=== PATIENT | male | born 1945 | race Hispanic/Latino ===

== ENCOUNTER 2022-04-22 04:31 | Emergency (ER) | payer MEDICARE ==
[2022-04-22 07:02] VITALS: BP 95/55
== END 2022-04-22 09:02 | disposition home or self-care (01) ==
LOC: EDH 04:31
DX: S51.812A Laceration without foreign body of left forearm, initial encounter (principal); S51.811A Laceration without foreign body of right forearm, initial encounter; S00.01XA Abrasion of scalp, initial encounter; S00.212A Abrasion of left eyelid and periocular area, initial encounter; F03.90 Unspecified dementia, unspecified severity, without behavioral disturbance, psychotic disturbance, mood disturbance, and anxiety; E11.9 Type 2 diabetes mellitus without complications; E78.00 Pure hypercholesterolemia, unspecified; I10 Essential (primary) hypertension; Z86.73 Personal history of transient ischemic attack (TIA), and cerebral infarction without residual deficits; W06.XXXA Fall from bed, initial encounter; Y93.89 Activity, other specified; Y92.89 Other specified places as the place of occurrence of the external cause; Y99.8 Other external cause status
CPT/HCPCS: 70450

== ENCOUNTER 2022-11-02 12:22 | Emergency (ER) | payer MEDICARE ==
[~2022-11-02] VITALS: Ht 167.6 cm; Wt 60.8 kg
[2022-11-02 13:11] LABS: BASOPHILS % (AUTO) 0.4 % (0.0-5.0); EOSINOPHILS % (AUTO) 5.6 % (0.0-8.0); HEMATOCRIT 32.1 % (42-54); MEAN CORPUSCULAR HEMOGLOBIN 31.4 pg (27.0-33.0); MEAN CORPUSCULAR HGB CONC 36.1 g/dL (32.0-36.0); MEAN CORPUSCULAR VOLUME 86.8 fL (79-99); MONOCYTES % (AUTO) 8.6 % (3.0-13.0); NEUTROPHILS % (AUTO) 71.9 % (40.0-77.0); PLATELET COUNT (AUTO) 88 K/uL (130-400); RED CELL DISTRIBUTION WIDTH 12.6 % (11.0-15.5); WHITE BLOOD COUNT (AUTO) 8.3 K/uL (4.8-10.8)
[2022-11-02 13:16] LABS: CREATININE 2.5 mg/dL (0.5-1.5); POTASSIUM 3.6 mmol/L (3.5-5.1)
[2022-11-02 13:27] LABS: ALBUMIN 3.7 g/dL (3.5-5.0); TOTAL PROTEIN, SERUM 7.1 g/dL (6.0-8.3)
[2022-11-02 15:12] VITALS: BP 123/76
[2022-11-02 18:03] LABS: APPEARANCE,URINE CLEAR (CLEAR); BILIRUBIN,URINE NEGATIVE (NEGATIVE); COLOR,URINE LIGHT-YELLOW (YELLOW); GLUCOSE, URINE (UA) NEGATIVE (NEGATIVE); KETONES,URINE NEGATIVE (NEGATIVE); LEUKOCYTE ESTERASE ,URINE NEGATIVE Leu/uL (NEGATIVE); NITRATE,URINE NEGATIVE (NEGATIVE); PH,URINE 5.5 (5.0-8.0); PROTEIN,URINE 20 mg/dL (NEGATIVE); UROBILINOGEN,URINE 0.2 mg/dL (0.2-1.0)
[2022-11-02 18:18] LABS: BACTERIA,URINE RARE /HPF (None Seen); MUCUS,URINE RARE LPF (None Seen); SQUAMOUS EPITHELIAL CELL,UR FEW /HPF (0-2); WBC,URINE 0-1 /HPF (0-1)
[2022-11-05] MEDS ORDERED: TRAZ-185 PO (12:17)
[2022-11-05] MEDS ORDERED: BUSP10TA3 PO (12:17)
[2022-11-05] MEDS ORDERED: HYDR-3422 PO (12:17)
[2022-11-05] MEDS ORDERED: CHOL4000 PO (12:17)
[2022-11-05] MEDS ORDERED: POTA10CA45 PO (12:17)
[2022-11-05] MEDS ORDERED: MEMA10TA55 PO (12:17)
[2022-11-05] MEDS ORDERED: DONE5TAB33 PO (12:17)
[2022-11-05] MEDS ORDERED: FERR-82 PO (12:17)
[2022-11-05] MEDS ORDERED: DIVA125T2 PO (12:17)
[2022-11-05] MEDS ORDERED: FLUO20CA30 PO (12:17)
[2022-11-05] MEDS ORDERED: MEDR5TAB PO (12:17)
[2022-11-05] MEDS ORDERED: FURO20TA4 PO (12:18)
[2022-11-05] MEDS ORDERED: ATOR10TA69 PO (12:18)
[2022-11-05] MEDS ORDERED: ASPI-1197 PO (12:18)
[2022-11-05] MEDS ORDERED: PHEN100C9 PO (12:18)
== END 2022-11-02 20:19 ==
LOC: EDH 12:22
DX: F03.911 Unspecified dementia, unspecified severity, with agitation (principal); R41.82 Altered mental status, unspecified; I12.9 Hypertensive chronic kidney disease with stage 1 through stage 4 chronic kidney disease, or unspecified chronic kidney disease; E11.22 Type 2 diabetes mellitus with diabetic chronic kidney disease; N18.4 Chronic kidney disease, stage 4 (severe); F31.9 Bipolar disorder, unspecified; E78.00 Pure hypercholesterolemia, unspecified; Z86.73 Personal history of transient ischemic attack (TIA), and cerebral infarction without residual deficits
CPT/HCPCS: 36415; 70450; 80053; 81001; 84484; 85025; 93005

== ENCOUNTER 2024-07-08 14:19 | Inpatient (IN) | payer MEDICARE ==
[~2024-07-08] VITALS: Ht 160 cm; Wt 54.4 kg
[~2024-07-08 14:19] MED LIST: ATOR10TA69 PO; DIVA125T2 PO; FOLI0.8T22 PO; HYDR-3421 PO; INSU100V42 SQ; MEMA10TA21 PO; POTA10CA95 PO
[2024-07-08 15:02] LABS: BASOPHILS # (AUTO) 0.02 K/uL (0.00-0.20); BASOPHILS % (AUTO) 0.4 % (0.0-5.0); EOSINOPHILS # (AUTO) 0.29 K/uL (0.00-0.70); EOSINOPHILS % (AUTO) 5.4 % (0.0-8.0); HEMATOCRIT 33.2 % (42-54); IMMATURE GRANULOCYTE ABSOLUTE 0.01 K/uL (0-1); LYMPHOCYTES # (AUTO) 0.9 K/uL (1.0-4.8); LYMPHOCYTES % (AUTO) 16.6 % (21.0-51.0); MEAN CORPUSCULAR HEMOGLOBIN 31.7 pg (27.0-33.0); MEAN CORPUSCULAR HGB CONC 36.1 g/dL (32.0-36.0); MEAN CORPUSCULAR VOLUME 87.8 fL (79-99); MONOCYTES # (AUTO) 0.4 K/uL (0.1-1.0); MONOCYTES % (AUTO) 7.9 % (3.0-13.0); NEUTROPHILS # (AUTO) 3.7 K/uL (1.8-7.7); NEUTROPHILS % (AUTO) 69.5 % (40.0-77.0); PLATELET COUNT (AUTO) 76 K/uL (130-400); RED BLOOD CELL COUNT(AUTO) 3.78 MIL/uL (4.50-6.20); RED CELL DISTRIBUTION WIDTH 13.1 % (11.0-15.5); WHITE BLOOD COUNT (AUTO) 5.4 K/uL (4.8-10.8)
[2024-07-08 15:35] LABS: CREATININE 2.3 mg/dL (0.5-1.3); POTASSIUM 4.5 mmol/L (3.5-5.1)
[2024-07-08 15:40] LABS: BILIRUBIN,TOTAL 0.5 mg/dL (0.2-1.0); TOTAL PROTEIN, SERUM 6.1 g/dL (6.0-8.3)
[2024-07-08] MEDS: DOXYCYCLINE 100MG+NS 250ML 250 ML IV SCH (16:03)
[2024-07-08] MEDS: cefTRIAXone 1G VIAL IVPB ONE (16:03)
[2024-07-08 17:59] LABS: APPEARANCE,URINE CLOUDY (CLEAR); BILIRUBIN,URINE NEGATIVE (NEGATIVE); COLOR,URINE LIGHT-YELLOW (YELLOW); GLUCOSE, URINE (UA) NEGATIVE (NEGATIVE); KETONES,URINE NEGATIVE (NEGATIVE); LEUKOCYTE ESTERASE ,URINE 500 Leu/uL (NEGATIVE); NITRATE,URINE NEGATIVE (NEGATIVE); OCCULT BLOOD,URINE SMALL (NEGATIVE); PROTEIN,URINE 100 mg/dL (NEGATIVE); UROBILINOGEN,URINE 0.2 mg/dL (0.2-1.0)
[2024-07-08 18:02] LABS: ADD UA MICROSCOPIC YES
[2024-07-08 18:07] LABS: BACTERIA,URINE MANY /HPF (None Seen); MUCUS,URINE RARE LPF (None Seen); SQUAMOUS EPITHELIAL CELL,UR RARE /HPF (0-2); WBC,URINE 51-100 /HPF (0-1)
[2024-07-08 18:17] LABS: ABG OXYGEN SATURATION 42.8 % (94.0-98.0); BASE EXCESS,VENOUS BLOOD GAS -1.7 (-2.0-3.0); HCO3,VENOUS BLOOD GAS 25.6 (22.0-29.0); PCO2,VENOUS BLOOD GAS 54 (38-54); PH,VENOUS BLOOD GAS 7.294 (7.320-7.430); PO2,VENOUS BLOOD GAS 24.1 mmHg (23.0-48.0); VENT MODE, BG NC (ROOM AIR)
[2024-07-08] MEDS ORDERED: IpraTROPium/alBUTERol SULFATE 3 ML SOLUTION IH PRN (18:30)
[2024-07-08] MEDS ORDERED: LORazepam 2 MG/ML 1 ML VIAL IVP PRN (18:30)
[2024-07-08 18:50] LABS: SARS-CoV-2, RNA, NAAT NEGATIVE SARS CoV-2 (NEGATIVE)
[2024-07-08 18:53] LABS: HEMOGLOBIN A1C 6.1 % (4.0-6.0)
[2024-07-08 18:54] LABS: INFLUENZA TYPE A Negative For Type A (NEGATIVE); INFLUENZA TYPE B Negative For Type B (NEGATIVE)
[2024-07-08 19:10] LABS: INR 1.14 (0.85-1.15); PROTHROMBIN TIME 12.2 SEC (9.6-11.6)
[2024-07-08 19:12] LABS: PARTIAL THROMBOPLASTIN TIME 29.3 SEC (26.3-35.5)
[2024-07-08 19:35] VITALS: PULSE 87; RESP 18; O2SAT 99
[2024-07-08] MEDS: BUDESONIDE 0.5 MG/2 ML INH IH SCH (19:35)
[2024-07-08 19:41] LABS: ABG BASE EXCESS -1.5 mmol/L (-2.0-3.0); ABG HCO3 22.1 mmol/L (21.0-28.0); ABG OXYGEN SATURATION 98.7 % (94.0-98.0); ABG PCO2 34 mmHg (35-48); ABG PH 7.428 (7.350-7.450); PO2, ARTERIAL BG 130.4 mmHg (83.0-108.0); VENT MODE, BG NC (ROOM AIR)
[2024-07-08 19:43] LABS: THYROID STIMULATING HORMONE 2.72 uIU/mL (0.36-3.74)
[2024-07-08] MEDS: SODIUM BICARB 50MEQ 50ML VIAL IV ONE (19:52)
[2024-07-08] MEDS: 0.9%NACL 1000ML 1,000 ML IV SCH (19:52)
[2024-07-08] MEDS: ATROPINE 1MG SYG IVP SCH (19:52)
[2024-07-08] MEDS: ZOSYN 3.375GM +NS 50ML IVPB SCH (19:52)
[2024-07-08] MEDS: FAMOTIDINE 20MG VIAL IV SCH (19:53)
[2024-07-08] MEDS: INSULIN humuLIN R 100 UNIT/ML 3ML SQ SCH (21:00)
[2024-07-09] VITALS (12 sets, daily range): BP systolic 115–150; BP diastolic 25–54; PULSE 29–114; RESP 15–18; O2SAT 95–99
[2024-07-09] MEDS ORDERED: AZITHROMYCIN 500MG+NS 250ML 250 ML IVPB SCH (08:00)
[2024-07-09] MEDS: [UNRECOGNIZED DRUG - OTHER] IV ONE (08:30)
[2024-07-09] MEDS: ENOXAPARIN SODIUM 30 MG/0.3 ML SQ SCH (09:05)
[2024-07-09] MEDS ORDERED: IpraTROPium 0.5 MG/2.5 ML INH IH SCH (10:30)
[2024-07-09 10:56] LABS: BASOPHILS # (AUTO) 0.02 K/uL (0.00-0.20); BASOPHILS % (AUTO) 0.3 % (0.0-5.0); EOSINOPHILS # (AUTO) 0.26 K/uL (0.00-0.70); EOSINOPHILS % (AUTO) 4.2 % (0.0-8.0); HEMATOCRIT 32.7 % (42-54); IMMATURE GRANULOCYTE ABSOLUTE 0.03 K/uL (0-1); LYMPHOCYTES # (AUTO) 1.1 K/uL (1.0-4.8); LYMPHOCYTES % (AUTO) 17.6 % (21.0-51.0); MEAN CORPUSCULAR HEMOGLOBIN 31.4 pg (27.0-33.0); MEAN CORPUSCULAR HGB CONC 35.8 g/dL (32.0-36.0); MEAN CORPUSCULAR VOLUME 87.7 fL (79-99); MONOCYTES # (AUTO) 0.5 K/uL (0.1-1.0); MONOCYTES % (AUTO) 8.6 % (3.0-13.0); NEUTROPHILS # (AUTO) 4.2 K/uL (1.8-7.7); NEUTROPHILS % (AUTO) 68.8 % (40.0-77.0); PLATELET COUNT (AUTO) 85 K/uL (130-400); RED BLOOD CELL COUNT(AUTO) 3.73 MIL/uL (4.50-6.20); WHITE BLOOD COUNT (AUTO) 6.2 K/uL (4.8-10.8)
[2024-07-09 11:16] LABS: ALBUMIN 3.1 g/dL (3.5-5.0); BILIRUBIN,TOTAL 0.6 mg/dL (0.2-1.0); CREATININE 2.1 mg/dL (0.5-1.3); MAGNESIUM 1.8 mg/dL (1.80-2.40); POTASSIUM 4.4 mmol/L (3.5-5.1); TOTAL PROTEIN, SERUM 6.1 g/dL (6.0-8.3)
[2024-07-09] MEDS ORDERED: HEParin 10,000 UNIT/10ML (1,000 UNIT/ML) VIAL ONE (11:21)
[2024-07-09] MEDS ORDERED: IOHEXOL 350 MG/ML 100ML INFUS..BTL IV ONE (11:21)
[2024-07-09] MEDS ORDERED: LIDOCAINE HCL 400MG/20ML VIAL ONE (11:21)
[2024-07-09] MEDS ORDERED: HEParin-NS 1,000 UNIT/500 ML 0 ML IV ONE (11:21)
[2024-07-09] MEDS ORDERED: SODIUM BICARB 50MEQ 50ML VIAL 0 ML ONE (11:21)
[2024-07-09] MEDS ORDERED: NITROGLYCERIN 50MG VIAL ONE (11:21)
[2024-07-09] MEDS: IpraTROPium 0.5 MG/2.5 ML INH IH SCH (11:33)
[2024-07-09] MEDS: SODIUM CHLORIDE 3% FOR INHALATION 4 ML/AMP VIAL.NEB IH ONE ×2 (11:33→19:00)
[2024-07-09] MEDS: DOXYCYCLINE 100MG+NS 250ML 250 ML IV SCH (17:00)
[2024-07-09] MEDS: IpraTROPium/alBUTERol SULFATE 3 ML SOLUTION IH SCH (19:00)
[2024-07-09] MEDS ORDERED: BUDESONIDE 0.5 MG/2 ML INH IH SCH (21:00)
[2024-07-10] VITALS (16 sets, daily range): BP systolic 114–163; BP diastolic 49–92; PULSE 26–87; RESP 15–18; O2SAT 93–98
[2024-07-10 04:41] LABS: BASOPHILS # (AUTO) 0.03 K/uL (0.00-0.20); BASOPHILS % (AUTO) 0.4 % (0.0-5.0); EOSINOPHILS # (AUTO) 0.09 K/uL (0.00-0.70); EOSINOPHILS % (AUTO) 1.3 % (0.0-8.0); IMMATURE GRANULOCYTE ABSOLUTE 0.04 K/uL (0-1); LYMPHOCYTES # (AUTO) 0.6 K/uL (1.0-4.8); MEAN CORPUSCULAR HEMOGLOBIN 31.7 pg (27.0-33.0); MEAN CORPUSCULAR HGB CONC 35.5 g/dL (32.0-36.0); MEAN CORPUSCULAR VOLUME 89.3 fL (79-99); MONOCYTES # (AUTO) 0.6 K/uL (0.1-1.0); NEUTROPHILS # (AUTO) 5.5 K/uL (1.8-7.7); NEUTROPHILS % (AUTO) 79.7 % (40.0-77.0); PLATELET COUNT (AUTO) 86 K/uL (130-400); RED BLOOD CELL COUNT(AUTO) 3.47 MIL/uL (4.50-6.20); RED CELL DISTRIBUTION WIDTH 13.5 % (11.0-15.5); WHITE BLOOD COUNT (AUTO) 6.9 K/uL (4.8-10.8)
[2024-07-10 05:07] LABS: CREATININE 2.6 mg/dL (0.5-1.3); MAGNESIUM 1.6 mg/dL (1.80-2.40); PHOSPHORUS 2.8 mg/dL (2.5-4.9); POTASSIUM 3.4 mmol/L (3.5-5.1)
[2024-07-10 05:33] LABS: WBC MORPHOLOGY CONSISTENT W/DIFF
[2024-07-10] MEDS: IpraTROPium 0.5 MG/2.5 ML INH IH SCH ×2 (09:30→11:00)
[2024-07-10] MEDS: SODIUM CHLORIDE 3% FOR INHALATION 4 ML/AMP VIAL.NEB IH ONE (11:00)
[2024-07-10] MEDS: IpraTROPium 0.5 MG/2.5 ML INH IH ONE (11:00)
[2024-07-10] MEDS: 0.9%NACL 1000ML 1,000 ML IV SCH (15:54)
[2024-07-10] MEDS: FAMOTIDINE 20MG VIAL IV SCH (21:03)
[2024-07-11] VITALS (11 sets, daily range): BP systolic 105–167; BP diastolic 55–97; PULSE 30–73; RESP 17–18; O2SAT 96–97
[2024-07-11 09:14] LABS: BASOPHILS # (AUTO) 0.07 K/uL (0.00-0.20); BASOPHILS % (AUTO) 0.4 % (0.0-5.0); EOSINOPHILS # (AUTO) 0.22 K/uL (0.00-0.70); EOSINOPHILS % (AUTO) 1.3 % (0.0-8.0); HEMATOCRIT 36.1 % (42-54); IMMATURE GRANULOCYTE ABSOLUTE 0.18 K/uL (0-1); LYMPHOCYTES # (AUTO) 1.6 K/uL (1.0-4.8); LYMPHOCYTES % (AUTO) 9.2 % (21.0-51.0); MEAN CORPUSCULAR HEMOGLOBIN 31.3 pg (27.0-33.0); MEAN CORPUSCULAR HGB CONC 33.5 g/dL (32.0-36.0); MEAN CORPUSCULAR VOLUME 93.5 fL (79-99); MONOCYTES # (AUTO) 0.8 K/uL (0.1-1.0); MONOCYTES % (AUTO) 4.8 % (3.0-13.0); NEUTROPHILS # (AUTO) 14.2 K/uL (1.8-7.7); NEUTROPHILS % (AUTO) 83.2 % (40.0-77.0); PLATELET COUNT (AUTO) 94 K/uL (130-400); RED BLOOD CELL COUNT(AUTO) 3.86 MIL/uL (4.50-6.20); RED CELL DISTRIBUTION WIDTH 14.2 % (11.0-15.5); WHITE BLOOD COUNT (AUTO) 17.1 K/uL (4.8-10.8)
[2024-07-11 09:44] LABS: CREATININE 2.5 mg/dL (0.5-1.3)
[2024-07-11] MEDS ORDERED: acetaMINOPHEN 325 MG TAB PO PRN (10:00)
[2024-07-11] MEDS ORDERED: ONDANSETRON 4MG INJ IVP PRN (12:30)
[2024-07-11] MEDS: DIVALPROEX SODIUM 125 MG PO SCH (13:00)
[2024-07-11] MEDS: divALPRoex SOdium 250 MG TAB PO SCH (19:28)
[2024-07-12] VITALS (9 sets, daily range): BP systolic 107–164; BP diastolic 55–66; PULSE 27–43; RESP 16–18; O2SAT 95–97
[2024-07-12 05:37] LABS: BASOPHILS # (AUTO) 0.03 K/uL (0.00-0.20); BASOPHILS % (AUTO) 0.3 % (0.0-5.0); HEMATOCRIT 34.6 % (42-54); IMMATURE GRANULOCYTE ABSOLUTE 0.06 K/uL (0-1); LYMPHOCYTES # (AUTO) 0.7 K/uL (1.0-4.8); LYMPHOCYTES % (AUTO) 8.5 % (21.0-51.0); MEAN CORPUSCULAR HEMOGLOBIN 31.8 pg (27.0-33.0); MEAN CORPUSCULAR HGB CONC 34.4 g/dL (32.0-36.0); MEAN CORPUSCULAR VOLUME 92.5 fL (79-99); MONOCYTES # (AUTO) 0.7 K/uL (0.1-1.0); MONOCYTES % (AUTO) 7.4 % (3.0-13.0); NEUTROPHILS # (AUTO) 7.3 K/uL (1.8-7.7); NEUTROPHILS % (AUTO) 83.1 % (40.0-77.0); PLATELET COUNT (AUTO) 96 K/uL (130-400); RED BLOOD CELL COUNT(AUTO) 3.74 MIL/uL (4.50-6.20); RED CELL DISTRIBUTION WIDTH 14.2 % (11.0-15.5); WHITE BLOOD COUNT (AUTO) 8.7 K/uL (4.8-10.8)
[2024-07-12 05:57] LABS: POTASSIUM 3.8 mmol/L (3.5-5.1)
[2024-07-12] MEDS ORDERED: DIVALPROEX SODIUM 125 MG PO SCH (09:00)
[2024-07-12] MEDS: Vitamin B Complex/Vit C/Folic Acid PO SCH (09:00)
[2024-07-12] MEDS: divALPRoex SOdium 250 MG TAB PO SCH (09:00)
[2024-07-12] MEDS: MEMANTINE HCL 5 MG TABLET PO SCH (09:00)
== END 2024-07-12 15:20 | disposition hospice, home (50) | DRG 308 ==
LOC: EDBD 14:19 → EDH 14:19 → EDSEX 14:19 → EDHIP 18:08 → 4AH 07-09 11:50
PROVIDERS: ADMIT Internal Medicine; ATTEND Internal Medicine
DX: I44.2 Atrioventricular block, complete (principal); E43 Unspecified severe protein-calorie malnutrition; J18.9 Pneumonia, unspecified organism; G93.41 Metabolic encephalopathy; J96.01 Acute respiratory failure with hypoxia; F03.C3 Unspecified dementia, severe, with mood disturbance; N17.9 Acute kidney failure, unspecified; E87.20 Acidosis, unspecified; N18.4 Chronic kidney disease, stage 4 (severe); N30.00 Acute cystitis without hematuria; Z20.822 Contact with and (suspected) exposure to COVID-19; F31.9 Bipolar disorder, unspecified; I49.8 Other specified cardiac arrhythmias; E11.22 Type 2 diabetes mellitus with diabetic chronic kidney disease; N40.0 Benign prostatic hyperplasia without lower urinary tract symptoms; Z66 Do not resuscitate; Z68.21 Body mass index [BMI] 21.0-21.9, adult; D69.6 Thrombocytopenia, unspecified; E78.5 Hyperlipidemia, unspecified; F41.9 Anxiety disorder, unspecified; K21.9 Gastro-esophageal reflux disease without esophagitis; B96.1 Klebsiella pneumoniae [K. pneumoniae] as the cause of diseases classified elsewhere; E11.65 Type 2 diabetes mellitus with hyperglycemia; R58 Hemorrhage, not elsewhere classified; E86.9 Volume depletion, unspecified; I12.9 Hypertensive chronic kidney disease with stage 1 through stage 4 chronic kidney disease, or unspecified chronic kidney disease; D64.9 Anemia, unspecified; G40.909 Epilepsy, unspecified, not intractable, without status epilepticus; Y95 Nosocomial condition; Z81.8 Family history of other mental and behavioral disorders; Z82.49 Family history of ischemic heart disease and other diseases of the circulatory system; Z83.3 Family history of diabetes mellitus; Z86.73 Personal history of transient ischemic attack (TIA), and cerebral infarction without residual deficits; Z95.0 Presence of cardiac pacemaker; Z74.01 Bed confinement status
CPT/HCPCS: 36415; 36600; 70450; 71045; 71250; 76770; 80048; 80053; 80164; 81001; 82140; 82435; 82550; 82607; 82746; 82803; 82947; 82948; 83036; 83605; 83735; 83880; 84100; 84132; 84145; 84295; 84439; 84443; 84481; 84484; 85025; 85610; 85651; 85730; 86140; 87086; 87186; 87635; 87804; 92610; 93005; 93306; 93970; 94640; 94664; G0378; J0461; J0696; J1644; J1650; J1815; J2060; J2543; J3490; Q9967